=== PATIENT | female | born 2000 | race Caucasian/White ===

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

== ENCOUNTER 2020-04-17 06:51 | Emergency (ER) | payer MEDICAID ==
[~2020-04-17] VITALS: Ht 157.5 cm; Wt 72.7 kg
[2020-04-17 06:59] VITALS: Ht 157.5 cm; Wt 72.7 kg
[2020-04-17 07:33] LABS: CALC OSMOLALITY 267 mosm/kg (275-300); CALCIUM 8.5 mg/dL (8.5-10.1); CHLORIDE - SERUM 102 mmol/L (98-107); CREATININE - SERUM 0.6 mg/dL (0.6-1.3); GLUCOSE 98 mg/dL (74-106); POTASSIUM - SERUM 3.6 mmol/L (3.5-5.1); SODIUM 135 mmol/L (136-145); UREA NITROGEN 6 mg/dL (7-18); eGFR NON AFRICAN AMERICAN > 90 mL/min (90-120)
[2020-04-17 07:38] LABS: ALBUMIN 3.3 g/dL (3.4-5.0); ALKALINE PHOSPHATASE 94 U/L (30-120); ALT (SGPT) 28 U/L (10-68); BASOPHILS 0.1 % (0-2); BILIRUBIN - TOTAL 0.39 mg/dL (0.2-1.3); EOSINOPHILS 0.3 % (0-7); HEMATOCRIT 43.1 % (36.0-48.0); HEMOGLOBIN 14.6 g/dL (12-16); IMMATURE GRANULOCYTES 0.2 % (0-5); LYMPHOCYTES 12.6 % (15-50); MCH 29.6 pg (26.0-34.0); MCHC 33.9 g/dL (31.0-37.0); MCV 87.2 fL (80.0-100.0); MONOCYTES 4.7 % (2-11); NEUTROPHILS 82.1 % (40-80); PLATELET COUNT 237 10x3/uL (130-400); PROTEIN - SERUM 7.3 g/dL (6.4-8.2); RBC 4.94 10x6/uL (4.00-5.40); RDW 13.4 % (11.5-14.5); WBC 12.3 10x3/uL (4.8-10.8)
[2020-04-17 07:54] LABS: BILIRUBIN NEGATIVE (NEGATIVE); KETONE NEGATIVE (NEGATIVE); NITRITE NEGATIVE (NEGATIVE); UROBILINOGEN NORMAL mg/dL (< 2)
[2020-04-17 07:55] LABS: BACTERIA FEW /HPF (NONE SEEN); EPITHELIAL CELLS 0-5 /hpf (0-5); WHITE CELLS - URINE 0-5 HPF (0-4)
[2020-04-17] MEDS ORDERED: MACROBID100 MG PO (08:28)
[2020-04-17 08:46] VITALS: BP 123/79
== END 2020-04-17 08:47 | disposition home or self-care (01) ==
LOC: D.ER 06:51
PROVIDERS: Family Medicine
DX: O26.892 Other specified pregnancy related conditions, second trimester (principal); Z3A.15 15 weeks gestation of pregnancy; R07.89 Other chest pain

== ENCOUNTER 2020-10-10 05:25 | Inpatient (IN) | payer MEDICAID ==
[~2020-10-10] VITALS: Ht 154.9 cm; Wt 83.4 kg
[~2020-10-10 05:25] MED LIST changes: +MACROBID100 MG PO
[2020-10-10 06:02] VITALS: BP 99/55; Ht 154.9 cm; Wt 83.4 kg
[2020-10-10 07:57] LABS: HEMATOCRIT 34.3 % (36.0-48.0); HEMOGLOBIN 10.8 g/dL (12-16); MCH 25.1 pg (26.0-34.0); MCHC 31.5 g/dL (31.0-37.0); MCV 79.6 fL (80.0-100.0); MEAN PLATELET VOLUME 9.2 fL (7.4-10.4); RBC 4.31 10x6/uL (4.00-5.40); RDW 14.1 % (11.5-14.5); WBC 6.7 10x3/uL (4.8-10.8)
[2020-10-10 08:04] LABS: UDS - AMPHET NEGATIVE QUAL (NEGATIVE); UDS - BARB NEGATIVE QUAL (NEGATIVE); UDS - BENZO NEGATIVE QUAL (NEGATIVE); UDS - COCAINE NEGATIVE QUAL (NEGATIVE); UDS - OPIATE NEGATIVE QUAL (NEGATIVE); UDS - PCP NEGATIVE QUAL (NEGATIVE); UDS - THC NEGATIVE QUAL (NEGATIVE)
--- NOTE | 2020-10-10 21:42 | NUR ---
PATIENT AMBULATED WITH ASSISTANCE TO ROOM 1278 FOR CARE.
--- NOTE | 2020-10-10 22:00 | NUR ---
PILLOWS PROVIDED PER PT REQUEST FOR HER BACK. LINENS PROVIDED FOR PT MOTHER.
--- NOTE | 2020-10-10 22:59 | NUR ---
PATIENT CALLED OUT ASKING FOR ANOTHER PAIN PILL IF IT WAS TIME. INFORMED HER THAT HER MOTRIN IS SCHEDULED EVERY 6 HRS. PT REQUESTING SOMETHING STRONGER. DR GILMORE CALLED AT THIS TIME AND NEW ORDER NOTED FOR A ONE TIME DOSE OF PERCOCET 5/325MG PO.
--- NOTE | 2020-10-10 23:15 | NUR ---
PT UP TO BATHROOM, VOIDED WITHOUT DIFFICULTY. PLUM SIZED CLOT NOTED IN TOILET. PT REASSURED THAT IT WAS WNL, PERICARE DONE AND CLEAN PAD AND PANTIES PLACED.
--- NOTE | 2020-10-10 23:21 | NUR ---
ADMINISTERED PERCOCET 5/325MG PO AT THIS TIME PER MD ORDER, SEE EMAR
--- NOTE | 2020-10-11 01:51 | NUR ---
PATIENTS MOTHER TO NURSES STATION REQUESTING A [place]RA[place] COLA FOR THE PT. COLA PROVIDED AT THIS TIME, NO FURTHER NEEDS IDENTIFIED.
--- NOTE | 2020-10-11 01:55 | NUR ---
PT CALLED OUT HR COORDINATOR MOORE, REQUESTING ANOTHER COLA. COLA PROVIDED AT THIS TIME, NO FURTHER NEEDS IDENTIFIED. WILL CONTINUE TO MONITOR.
--- NOTE | 2020-10-11 02:13 | NUR ---
PT AMBULATING IN HALLWAY WITH MOTHER, STATES THAT SHE IS GOING TO WATCH HER BABY GET HIS FIRST BATH.
--- NOTE | 2020-10-11 03:35 | NUR ---
PATIENT BACK TO ROOM AT THIS TIME, COKE AND PAIN MEDICATION PROVIDED PER PT REQUEST. SEE EMAR.
--- NOTE | 2020-10-11 05:05 | NUR ---
IN TO CHECK ON PATIENT, PT SITTING UP IN BED USING HER CELL PHONE. DENIES NEEDS AT THIS TIME. WILL CONTINUE TO MONITOR
--- NOTE | 2020-10-11 05:10 | NUR ---
PATIENT REQUESTING BENADRYL, DR GILMORE CALLED AND NEW ORDER NOTED FOR BENADRYL 50MG PO NOW.
--- NOTE | 2020-10-11 06:30 | NUR ---
PT SITTING UP IN BED. STATES THAT HER ITCHING IS RESOLVED. DENIES NEEDS, PTS MOTHER REMAINS AT BEDSIDE FOR SUPPORT. NO FURTHER NEEDS IDENTIFIED.
--- NOTE | 2020-10-11 07:11 | NUR ---
REPORT TO AM SHIFT TO ASSUME PT CARE.
[2020-10-11 07:16] LABS: RAPID PLASMA REAGIN Non Reactive (Non Reactive)
--- NOTE | 2020-10-11 07:30 | NUR ---
TO PT'S ROOM, PT IS LYING IN BED, RESTING WITH EYES CLOSED/ ASLEEP, PT NOT DISTURBED. RESP EVEN AND UL. WILL RETURN FOR AM ASSESSMENT. SRUP X2, CALL LIGHT AND PHONE WITHIN REACH.
[2020-10-11 07:38] LABS: BASOPHILS 0.1 % (0-2); EOSINOPHILS 0.3 % (0-7); HEMATOCRIT 33.9 % (36.0-48.0); HEMOGLOBIN 10.5 g/dL (12-16); IMMATURE GRANULOCYTES 0.2 % (0-5); LYMPHOCYTE ABS# 2.59 10x3/uL (1.18-3.74); LYMPHOCYTES 24.9 % (15-50); MCH 24.9 pg (26.0-34.0); MCV 80.3 fL (80.0-100.0); MEAN PLATELET VOLUME 9.3 fL (7.4-10.4); MONOCYTES 8.6 % (2-11); NEUTROPHIL ABS# 6.87 10x3/uL (1.56-6.13); NEUTROPHILS 65.9 % (40-80); PLATELET COUNT 202 10x3/uL (130-400); RBC 4.22 10x6/uL (4.00-5.40); RDW 14.3 % (11.5-14.5)
[2020-10-11 07:47] LABS: WBC 10.4 10x3/uL (4.8-10.8)
[2020-10-11 10:40] VITALS: BP 109/57
--- NOTE | 2020-10-11 10:40 | NUR ---
PT CONTINUES TO REST WITH EYES CLOSED, SPOKE TO PT, AM ASSESSMENT COMPLETED, SEE FLOWSHEET. PT DENIES SOB, DIFFICULTY BREATHING, N/V. PT SERVED COLA TO DRINK PER HER REQUEST. SEE EMAR FOR ALL MEDS ADM BY THIS RN. SR UP X 2, CALL LIGHT AND PHONE WITHIN REACH. PT WISHES TO GO BACK TO SLEEP. LIGHTS DIMMED PER PT'S REQUEST. VISITOR AT BEDSIDE.
--- NOTE | 2020-10-11 11:45 | NUR ---
DIETARY SERVES REGULAR LUNCH TRAY. PT DENIES ALL NEEDS AT THIS TIME.
--- NOTE | 2020-10-11 12:45 | NUR ---
PT AMBULATORY IN HALLWAY, TO NURSERY. PT DENIES ALL OTHER NEEDS AT THIS TIME.
--- NOTE | 2020-10-11 16:45 | NUR ---
REGULAR TRAY SERVED BY DIETARY, PT REQUESTED TO HAVE BED LINENS CHANGED. PT NOW STATES SHE WANTS TO WAIT UNTIL AFTER SHE EATS TO HAVE LINENS CHANGED. DENIES ALL OTHER NEEDS.
--- NOTE | 2020-10-11 19:53 | NUR ---
RCVD PT FROM AM SHIFT. PT DISCHARGED AND AWAITING ROOM FOR ROOMING IN STATUS.
== END 2020-10-11 19:54 | disposition home or self-care (01) | DRG 807 ==
LOC: D.LD 05:25
PROVIDERS: ADMIT Student in an Organized Health Care Education/Training Program; ATTEND Student in an Organized Health Care Education/Training Program
PROC: 10E0XZZ Delivery of Products of Conception, External Approach (ICD-10-PCS; principal; 2020-10-10)
PROC: 10907ZC Drainage of Amniotic Fluid, Therapeutic from Products of Conception, Via Natural or Artificial Opening (ICD-10-PCS; 2020-10-10)
DX: O75.89 Other specified complications of labor and delivery (principal); Z37.0 Single live birth; Z3A.40 40 weeks gestation of pregnancy

== ENCOUNTER 2021-01-07 18:23 | Emergency (ER) | payer MEDICAID ==
[~2021-01-07] VITALS: Ht 154.9 cm; Wt 71.8 kg
[2021-01-07 18:31] VITALS: BP 117/69; Ht 154.9 cm; Wt 71.8 kg
[2021-01-07] MEDS ORDERED: TORADOL10 MG PO (20:05)
[2021-01-07] MEDS ORDERED: METHOCARBAMOL500 MG PO (20:05)
== END 2021-01-07 20:52 | disposition home or self-care (01) ==
LOC: D.ER 18:23
DX: S00.93XA Contusion of unspecified part of head, initial encounter (principal); S40.812A Abrasion of left upper arm, initial encounter; S90.512A Abrasion, left ankle, initial encounter; S16.1XXA Strain of muscle, fascia and tendon at neck level, initial encounter; S90.02XA Contusion of left ankle, initial encounter; S80.02XA Contusion of left knee, initial encounter; S40.012A Contusion of left shoulder, initial encounter; S60.212A Contusion of left wrist, initial encounter; V89.9XXA Person injured in unspecified vehicle accident, initial encounter; Y93.9 Activity, unspecified; Y92.9 Unspecified place or not applicable